=== PATIENT | male | born 1970 | race Caucasian/White ===

== ENCOUNTER 2018-02-13 07:40 | Day surgery (SDC) | payer MEDICARE, BC ==
[2018-02-12 09:01] VITALS: BMI 29.2
--- NOTE | 2018-02-13 06:04 | HP ---
HISTORY AND PHYSICAL CHIEF COMPLAINT: Fluid in the right ear. HISTORY OF THE PRESENT ILLNESS: This patient is a 47-year-old male who presented to my office complaining of having a plugged sensation and decreased hearing in his right ear. He has a known history of a bilateral sensorineural hearing loss since he was a child. He has at one point worn hearing aids, but states that he has not worn these for many years. A recent hearing test at a local [facility] revealed evidence of a mixed right hearing loss. The patient has evidence of trisomy disorder (mongoloidism). At the time that he was seen in my office clinical examination of the ears revealed a right chronic serous otitis media. The patient was placed on oral antibiotics and oral steroids. Re-examining the patient's ear approximately 2 weeks later revealed no improvement and therefore it was recommended that the patient undergo a right myringotomy with insertion of a ventilation tube. PAST MEDICAL HISTORY: Past medical history reveals that the patient has an allergy to PENICILLIN, CECLOR and DILANTIN. Current medications include Lasix, Claritin. Singulair, Prilosec, and Flonase nasal spray. These medications are mainly for seasonal allergies. REVIEW OF SYSTEMS: The review of systems is positive with respect to the gastrointestinal system which is positive for GERD without esophagitis. The remainder of the review of systems is unremarkable. PREVIOUS SURGERIES: Previous surgeries include tonsillectomy, , bilateral myringotomy with insertion of ventilation tubes x1. PHYSICAL EXAMINATION: The patient is a pleasant 47-year-old male who is alert and cooperative. HEENT EXAMINATION: The patient is normocephalic. Examination of the left ear is unremarkable. Examination of the right ear reveals evidence of fluid in the right middle ear space. Pupils are equal, round, and reactive to light and accommodation. Extraocular movements are within normal limits. Intranasal examination reveals moderate septal deviation with compensatory hypertrophy of the inferior turbinates and a moderate amount of mucus on the mucous membranes and bilateral hypertrophy of the inferior turbinates. Examination of oropharynx, cranial nerves 2 through 12 and the remainder of the head and neck exam are all within normal limits. CHEST/CARDIOVASCULAR: Both lung timmons are clear to percussion and auscultation. The patient is in regular sinus rhythm. S1, S2 are present without any evidence of any murmurs, S3s or S4s. Peripheral pulses are bilaterally symmetrical and within normal limits. ABDOMEN: There is no evidence of any masses, megaly, or tenderness. The abdomen is soft. Skin is unremarkable. Musculoskeletal and neurological and the remainder of the physical exam is essentially unremarkable. IMPRESSION: Chronic right serous otitis media. PLAN: The patient is scheduled to undergo a right myringotomy with insertion of a ventilation tube under either IV sedation or most likely general anesthesia (because of his trisomy disorder) via possible LMA or general and/or intubation. The method of anesthesia will be totally dependent upon the anesthesia department's preference with regards to safety. ATTENTION RNS IN THE PRE-SURGICAL AREA: I have not ordered any pre-surgical prophylactic antibiotics for this patient. If the pharmacy department sends any pre- surgical prophylactic antibiotics to the pre-surgical area for this patient, this order should be canceled, the medication should be returned to the pharmacy department and make sure that the patient's account is credited appropriately. I have discussed the risks, benefits and alternative therapies for the above-mentioned procedure and for both sedation/analgesia as well as necessary blood product administration, if indicated, as they pertain to this patient. The patient has indicated his or her understanding and acceptance of the risks and procedures discussed. MMODL / IJN: [id number] /
[~2018-02-13 07:40] MED LIST: DEXAMETHASONE SOD PHOSPHATE 10 MG/ML 1 ML VIAL IV ONE; LACTATED RINGERS 1,000 ML IV SCH; MIDAZOLAM 2 MG/2 ML VIAL IV PRN; ONDANSETRON 4 MG/2 ML VIAL IVP ONE; Pre Op ABX Message 1 EACH MISC MISCELLANE ONE; SCOPOLAMINE 1.5MG/72HR PATCH TRANSDERM ONE; fentaNYL (PF) 50 MCG/ML 2 ML AMP IV PRN
[2018-02-13] MEDS ORDERED: LIDOCAINE 1% 20 ML VIAL (10MG/ML) FOR IV START SQ ONE (08:34)
[2018-02-13] MEDS ORDERED: OFLOXACIN 0.3% OPHTH DROPS 5 ML BOTTLE RIGHT EAR ONE (10:09)
[2018-02-13] MEDS ORDERED: fentaNYL (PF) 50 MCG/ML 2 ML AMP ONE (10:09)
[2018-02-13] MEDS ORDERED: PROPOFOL 10 MG/ML 20 ML VIAL IV ONE (10:09)
[2018-02-13] MEDS ORDERED: PHENYLEPHRINE-0.9% NACL SYG 1 MG/10 ML SYRINGE ONE (10:09)
[2018-02-13] MEDS ORDERED: LIDOCAINE 1% INJ 10MG/ML (20 ML MDV) ONE (10:09)
[2018-02-13] MEDS ORDERED: MIDAZOLAM 2 MG/2 ML VIAL ONE (10:09)
[2018-02-13 10:58] VITALS: TEMP 97
[2018-02-13 12:55] VITALS: BP 121/79; PULSE 67; RESP 18
--- NOTE | 2018-02-15 21:13 | OP ---
OPERATIVE REPORT PREOPERATIVE DIAGNOSIS: Chronic right serous otitis media. POSTOPERATIVE DIAGNOSIS: Chronic right serous otitis media. ANESTHESIA: Anesthesia was general. OPERATIVE PROCEDURE: Right myringotomy with insertion of a stainless steel Raheem bobbin stainless steel ventilation tube. SURGEON: Dr. Garcia. COMPLICATIONS: None. ESTIMATED BLOOD LOSS: Zero. OPERATIVE PROCEDURE: The patient is placed on operative operating table in supine position and after uneventful induction and mask inhalation anesthesia, satisfactory general anesthesia was obtained. Next the patient's right ear was draped in usual and customary fashion. Following this, using the Zeiss operating microscope and a #3 aural speculum and the Zeiss operating microscope, the right external auditory canal was cleansed of all wax and debris. The right tympanic membrane appeared to be quite atelectatic and there was fluid in the right middle ear space. Therefore, using the myringotomy knife, an incision was made in the anterior inferior quadrant of the right tympanic membrane. The fluid was suctioned from the right middle ear space using a Chicas suction tip. Next, a stainless steel Raheem bobbin ventilation tube was inserted through the previously made myringotomy incision without difficulty. At this point, the procedure was terminated. There were no intraoperative complications. The patient tolerated the procedure well and was returned to the recovery room in satisfactory condition. MMODL / IJN: [id number] /
== END 2018-02-13 13:03 | disposition home or self-care (01) ==
LOC: OR 07:40
PROVIDERS: ATTEND Otolaryngology
DX: H65.21 Chronic serous otitis media, right ear (principal); H90.6 Mixed conductive and sensorineural hearing loss, bilateral; Q90.9 Down syndrome, unspecified; Z88.0 Allergy status to penicillin; Z88.1 Allergy status to other antibiotic agents; Z88.8 Allergy status to other drugs, medicaments and biological substances; Z79.899 Other long term (current) drug therapy; K21.9 Gastro-esophageal reflux disease without esophagitis
CPT/HCPCS: 69436; J2250; J1100; J2405; J2001; J3010; J2370; J2704

== ENCOUNTER 2019-07-09 09:31 | Day surgery (SDC) | payer MEDICARE, OTHER ==
[2019-07-08 08:26] VITALS: BMI 27.6
--- NOTE | 2019-07-09 05:09 | HP ---
HISTORY AND PHYSICAL CHIEF COMPLAINT: History of fluid in the right ear. HISTORY OF PRESENT ILLNESS: The patient is a 48-year-old male who was recently seen in my office for evaluation of possible persistent fluid in the right ear. The patient had previously undergone a right myringotomy with insertion of ventilation tube in 2018. He had done well but recently the tube had extruded. At the time that he was seen in my office, clinical examination of the right ear revealed presence of fluid in the right ear and the left ear appeared to be normal. Therefore, it was recommended that the patient undergo a right myringotomy with insertion of ventilation tube under general anesthesia. PAST MEDICAL HISTORY: Past medical history reveals that the patient has an allergy to PENICILLIN, CECLOR and DILANTIN. His current medications include: 1. Lasix. 2. Claritin. 3. Singulair. 4. Prilosec. 5. Flonase nasal spray. REVIEW OF SYSTEMS: Review of systems is positive with respect to the gastrointestinal system which is positive for GERD, gastroesophageal reflux disorder. The remainder of the review of systems is unremarkable. PREVIOUS SURGERIES: Previous surgeries include right myringotomy with insertion of ventilation tube, . tonsillectomy, adenoidectomy, and bilateral myringotomy with insertion of ventilation tubes x1. PHYSICAL EXAMINATION: This patient is a 48-year-old male who is alert and cooperative. HEENT EXAMINATION: Patient is normocephalic. Left tympanic membrane is normal. Left middle ear space is free of any fluid or infection. Examination of the right knee reveals right tympanic membrane is dull with fluid in the right middle ear space. The previously inserted right myringotomy and tube has extruded. Pupils are equal, round, react to light and accommodation. Extraocular movements within normal limits. Intranasal examination reveals slight septal deviation with compensatory hypertrophy of the inferior turbinates and a moderate amount of mucus on the mucous membranes and draining down the posterior pharynx. Examination of oropharynx, cranial nerves 2 through 12 and the remainder of the head and neck exam are within normal limits. CHEST/CARDIOVASCULAR: Both lung timmons are clear to percussion and auscultation. The patient is in regular sinus rhythm. S1 and S2 are present without any murmurs, S3s or S4s. Peripheral pulses are bilaterally symmetrical. ABDOMEN: There is no evidence any masses, megaly, or tenderness. The abdomen is soft. SKIN: Is unremarkable. Musculoskeletal and neurological are all within normal limits. The remainder of the physical exam is essentially unremarkable. IMPRESSION: Chronic right serous otitis media. PLAN: The patient is scheduled undergo a right myringotomy with insertion of ventilation tube under either general anesthesia or IV sedation with MAC in the a.m. ATTENTION RNS IN THE PRE-SURGICAL AREA: I have not ordered any pre-surgical prophylactic antibiotics for this patient. If the pharmacy department sends any pre- surgical prophylactic antibiotics to the pre-surgical area for this patient, please cancel that order and return the medication to the pharmacy department. Also make sure that the patient's account is credited appropriately. I have discussed the risks, benefits and alternative therapies for the above-mentioned procedure and for both sedation/analgesia as well as necessary blood product administration, if indicated, as they pertain to this patient. The patient has indicated his or her understanding and acceptance of the risks and procedures discussed. MMODL / IJN: [id number] /
[~2019-07-09 09:31] MED LIST changes: +HYDROmorphone 0.5 MG/0.5 ML SYRINGE IVP PRN; +LIDOCAINE 1% 20 ML VIAL (10MG/ML) FOR IV START INTRADERMA PRN; -MIDAZOLAM 2 MG/2 ML VIAL IV PRN; -SCOPOLAMINE 1.5MG/72HR PATCH TRANSDERM ONE; -fentaNYL (PF) 50 MCG/ML 2 ML AMP IV PRN
[2019-07-09 10:12] VITALS: RESP 16
[2019-07-09] MEDS ORDERED: fentaNYL (PF) 50 MCG/ML 2 ML AMP ONE (10:58)
[2019-07-09] MEDS ORDERED: MIDAZOLAM 2 MG/2 ML VIAL ONE (10:58)
[2019-07-09] MEDS ORDERED: KETOROLAC 30 MG/ML 1 ML VIAL ONE (10:58)
[2019-07-09] MEDS ORDERED: LIDOCAINE 1% INJ 10MG/ML (20 ML MDV) ONE ×2 (10:58)
[2019-07-09] MEDS ORDERED: PROPOFOL 10 MG/ML 20 ML VIAL IV ONE (10:58)
[2019-07-09] MEDS ORDERED: OFLOXACIN 0.3% OPHTH DROPS 5 ML BOTTLE RIGHT EAR ONE (11:22)
[2019-07-09 11:37] VITALS: TEMP 98.5
[2019-07-09 12:41] VITALS: BP 105/68; PULSE 63
--- NOTE | 2019-07-11 11:19 | OP ---
OPERATIVE REPORT DATE OF SURGERY: 07/09/2019. PREOPERATIVE DIAGNOSIS: Chronic right serous otitis media. POSTOPERATIVE DIAGNOSIS: Chronic right serous otitis media. ANESTHESIA: General. OPERATIVE PROCEDURE: Right myringotomy with insertion of a Oseguera type ventilation tube. OPERATING SURGEON: Dr. Garcia. COMPLICATIONS: None. OPERATIVE PROCEDURE: The patient is placed on operating table in supine position, and after an uneventful induction and LMA intubation, satisfactory general anesthesia was obtained. Next the patient's right ear was draped in usual customary fashion. Following this, using the Zeiss operating microscope and a #3 aural speculum, the right external auditory canal was cleansed of all wax and debris. Next, an incision was made in the anterior inferior quadrant of the right tympanic membrane, which was noted to be quite thin and the middle ear space was suctioned free of all fluid. Next a Oseguera type of ventilation tube was inserted through the previously made myringotomy incision without difficulty. At this point, the procedure was terminated. There were no intraoperative complications. The patient tolerated the procedure well and was returned to the recovery room in satisfactory condition. MMODL / IJN: [id number] /
== END 2019-07-09 13:09 | disposition home or self-care (01) ==
LOC: OR 09:31
PROVIDERS: ATTEND Otolaryngology
DX: H65.21 Chronic serous otitis media, right ear (principal); M10.9 Gout, unspecified; M19.90 Unspecified osteoarthritis, unspecified site; Q90.9 Down syndrome, unspecified; H91.90 Unspecified hearing loss, unspecified ear; K21.9 Gastro-esophageal reflux disease without esophagitis; Z88.0 Allergy status to penicillin; Z88.1 Allergy status to other antibiotic agents; Z88.8 Allergy status to other drugs, medicaments and biological substances; Z79.51 Long term (current) use of inhaled steroids; Z79.899 Other long term (current) drug therapy; Z86.19 Personal history of other infectious and parasitic diseases; Z87.19 Personal history of other diseases of the digestive system
CPT/HCPCS: 69436; J2250; J1100; J2405; J2001; J3010; J1885; J2704

== ENCOUNTER 2020-03-13 10:19 | Day surgery (SDC) | payer MEDICARE, OTHER ==
[2020-03-09 11:33] VITALS: BMI 26.1
--- NOTE | 2020-03-12 18:59 | HP ---
HISTORY AND PHYSICAL CHIEF COMPLAINT: Fluid in the right ear. HISTORY OF PRESENT ILLNESS: The patient is a pleasant 49-year-old male who was recently seen in my office complaining of having a plugged sensation in his right ear. At the time the patient was seen in my office, clinical examination revealed that the patient's previously inserted tube appeared to be completely occluded with cerumen in the right side and also it had partially or totally extruded from the right middle ear space. The right middle ear space was filled with fluid, chronic right serous otitis media so-called glue ear. It was recommend the patient undergo a right myringotomy with insertion of a ventilation tube, probably a Naomi type T tube, under either IV sedation or general anesthesia with a LMA depended upon the anesthesia department's preference. PAST MEDICAL HISTORY: Past medical history reveals that the patient has: ALLERGIES: TO PENICILLIN, CECLOR, AND DILANTIN. PREVIOUS SURGERIES: Previous surgeries include a right myringotomy with insertion of ventilation tubes, bilateral myringotomy with insertion of ventilation tubes x1, and a tonsillectomy and adenoidectomy. CURRENT MEDICATIONS: Include Lasix, Claritin, Singulair, Prilosec and Flonase nasal spray. REVIEW OF SYSTEMS: Review of systems is positive with respect to the gastrointestinal system which was positive for gastroesophageal reflux disorder. The remainder of review of systems is unremarkable. PHYSICAL EXAMINATION: This patient is a very pleasant 49-year-old male who was alert, cooperative and well- oriented. HEENT examination: Patient is normocephalic. Left tympanic membrane middle ear space is free of any fluid or infection. Examination of right ear reveals right ventilation tube has extruded and is the lumen is plugged with cerumen. The right tympanic membrane is dull with fluid in the right middle ear space. Pupils are equal, round, react to light and accommodation. Extraocular movements are within normal limits. Intranasal examination reveals moderate septal deviation with compensatory hypertrophy inferior turbinates. Examination of oropharynx, cranial nerves 2 through 12 and remainder of the head and neck exam are within normal limits. CHEST/CARDIOVASCULAR: Both lung timmons are clear to percussion and auscultation. The patient is in regular sinus rhythm. S1 and S2 are present without evidence of any murmurs S3s or S4. Peripheral pulses are bilaterally symmetrical and within normal limits. ABDOMEN: There is no evidence of masses megaly or tenderness. The abdomen is soft. SKIN is unremarkable. MUSCULOSKELETAL: Within normal limits. NEUROLOGICAL: Within normal limits. RECTAL examination is deferred at this time because the patient has this done on a regular basis at his family physician's office. The remainder of physical exam is unremarkable. IMPRESSION: Chronic right serous otitis media. PLAN: The patient is scheduled undergo a right myringotomy, with insertion of a Naomi type T2 tube under either IV sedation or general anesthesia with a LMA, depending upon the anesthesia department's preference. Attention RNs in the pre-surgical area: I have not ordered any pre-surgical prophylactic antibiotics for this patient. If the pharmacy department sends any pre- surgical prophylactic antibiotics to the pre-surgical area for this patient, cancel that order, return the medication to the pharmacy department, and make sure that the patient's account is credited appropriately. I have discussed the risks, benefits and alternative therapies for the above-mentioned procedure and for both sedation/analgesia as well as necessary blood product administration, if indicated, as they pertain to this patient. The patient has indicated his or her understanding and acceptance of the risks and procedures discussed. MMODL / IJN: [id number] /
[~2020-03-13 10:19] MED LIST changes: -HYDROmorphone 0.5 MG/0.5 ML SYRINGE IVP PRN; -LIDOCAINE 1% 20 ML VIAL (10MG/ML) FOR IV START INTRADERMA PRN; +SCOPOLAMINE 1.5MG/72HR PATCH TRANSDERM ONE
[2020-03-13] MEDS ORDERED: LIDOCAINE 1% (10MG/ML) FOR IV START INTRADERMA ONE (11:07)
[2020-03-13] MEDS ORDERED: LIDOCAINE 1% INJ 10MG/ML (20 ML MDV) ONE (11:41)
[2020-03-13] MEDS ORDERED: PROPOFOL 10 MG/ML 20 ML VIAL IV ONE (11:41)
[2020-03-13] MEDS ORDERED: CIPROFLOXACIN-DEXAMETH 0.3-0.1% DROPS 7.5 ML BTL RIGHT EAR ONE (12:06)
[2020-03-13 12:40] VITALS: TEMP 97.6
[2020-03-13 13:07] VITALS: RESP 16
[2020-03-13 13:22] VITALS: BP 114/75; PULSE 59
--- NOTE | 2020-03-13 18:31 | OP ---
OPERATIVE REPORT PREOPERATIVE DIAGNOSIS: Chronic right serous otitis media. POSTOPERATIVE DIAGNOSIS: Chronic right serous otitis media. ANESTHESIA: General. OPERATIVE PROCEDURE: Right myringotomy with insertion of a Naomi T-type ventilation tube. SURGEON: Dr. Garcia. COMPLICATIONS: None. OPERATIVE PROCEDURE DESCRIPTION: The patient was placed on the operating table in supine position. After uneventful induction and LMA intubation, satisfactory general anesthesia was obtained. Next, the patient was draped in the usual and customary fashion, following which, using the Zeiss operating microscope and a #3 aural speculum, the right external auditory canal was cleansed of all wax and debris. Next a myringotomy knife used to make an incision in the anterior inferior quadrant of the right tympanic membrane. The right middle ear space was suctioned free of all fluid and a Naomi-type T-tube was inserted through the previously made myringotomy incision without any difficulty. At this point the procedure was terminated. There were no intraoperative complications. Patient tolerated the procedure well and was returned to the recovery room in satisfactory condition. MMODL / IJN: [id number] /
== END 2020-03-13 13:50 | disposition home or self-care (01) ==
LOC: EEVIPCON 10:19 → OR 10:19
PROVIDERS: ATTEND Otolaryngology
DX: H65.21 Chronic serous otitis media, right ear (principal); K21.9 Gastro-esophageal reflux disease without esophagitis; Q90.9 Down syndrome, unspecified; Z90.89 Acquired absence of other organs; Z79.899 Other long term (current) drug therapy; Z88.0 Allergy status to penicillin; Z88.1 Allergy status to other antibiotic agents; Z88.8 Allergy status to other drugs, medicaments and biological substances
CPT/HCPCS: 69436; J1100; J2405; J2001; J2704